=== PATIENT | female | born 1990 | race American Indian/Alaskan Native ===

== ENCOUNTER 2021-12-22 20:11 | Emergency (ER) | payer MEDICAID ==
[2021-12-22 20:19] VITALS: BP 134/76
[2021-12-22 21:16] LABS: Bacteria,Urine 1+ /HPF (Negative); Bilirubin,Urine NEG (Negative); Blood,Urine NEG (Negative); Color,Urine Yellow (Yellow); HCG Qualitative,Urine Negative (Negative); Mucus,Urine 1+ /HPF; Protein,Urine <15 mg/dL mg/dL (Negative)
[2021-12-22 21:20] LABS: Amphetamine Screen,Urine Negative; Benzodiazepines Screen,Urine Negative; Cannabinoid Screen,Urine Negative; Cocaine Screen,Urine Negative; Methadone Screen,Urine Negative; Opiate Screen,Urine Negative
== END 2021-12-23 11:32 | disposition left against medical advice (07) ==
LOC: ED 20:11
DX: Z91.14 Patient's other noncompliance with medication regimen (principal); Z53.21 Procedure and treatment not carried out due to patient leaving prior to being seen by health care provider
CPT/HCPCS: 80307; 81001; 81025

== ENCOUNTER 2021-12-28 21:49 | Emergency (ER) | payer MEDICAID ==
[2021-12-28] MEDS ORDERED: diphenhydrAMINE 50 MG/ML VIAL IM ONE (21:58)
[2021-12-28] MEDS ORDERED: ZIPRASIDONE MESYLATE 20 MG VIAL IM ONE (21:58)
[2021-12-28] MEDS ORDERED: LORazepam 2 MG/ML VIAL IM ONE (21:58)
--- NOTE | 2021-12-28 23:12 | Emergency Department Report ---
ED Psych HPI - General Chief Complaint: Psych Stated Complaint: MH Time Seen by Provider: 12/28/21 21:58 Source: police, EMS Mode of arrival: Ambulatory Limitations: Altered Mental Status - History of Present Illness Initial Comments: PT IS 31 YEARS OLD WITH HISTORY OF BIPOLAR BROUGHT IN LOCAL POLICE FOR AGITATION AND COMBATIVENESS, PT APPEARED DELUSIONAL RESPONDING TO INTERNAL STIMULATION WITH AGITATION . WAS BROUGTH IN HERE FOR EVALUATION AND POSSIBLE MANAGEMENT AND TRANSFER TO PSYCH FACILITY PT HAD TO BE SEDATED AFTER BEING TRANSPORTED HERE Associated Psychiatric Symptoms: racing thoughts, auditory hallucinations, delu sions History of same: Yes Quality: constant Improves With: therapy Worsens With: none Treatments Prior to Arrival: placed on mental he, physical restraints - Related Data Allergies Allergy/AdvReac Type Severity Reaction Status Date / Time quetiapine fumarate Allergy Unknown Verified 05/07/16 11:54 [From Seroquel] tramadol Allergy Unknown Verified 05/07/16 11:54 haloperidol [From Haldol] AdvReac Unknown Verified 05/07/16 11:54 haloperidol lactate AdvReac Unknown Verified 05/07/16 11:54 [From Haldol] ED Review of Systems ROS: Stated complaint: MH Other details as noted in HPI Comment: Unobtainable due to pts medical conditions Constitutional: denies: chills, fever Eyes: denies: eye pain, eye discharge, vision change ENT: denies: ear pain, throat pain Respiratory: denies: cough, shortness of breath, wheezing Cardiovascular: denies: chest pain, palpitations Endocrine: no symptoms reported Gastrointestinal: denies: abdominal pain, nausea, diarrhea Genitourinary: denies: urgency, dysuria, discharge Musculoskeletal: denies: back pain, joint swelling, arthralgia Skin: denies: rash, lesions Neurological: denies: headache, weakness, paresthesias Psychiatric: denies: anxiety, depression Hematological/Lymphatic: denies: easy bleeding, easy bruising ED Past Medical Hx - Past Medical History Hx Diabetes: Yes Hx Psychiatric Treatment: Yes (bipolar) - Social History Smoking Status: Unknown if ever smoked ED Physical Exam - General Limitations: No Limitations General appearance: alert, anxious, other (AGITATED ) - Head Head exam: Present: atraumatic, normocephalic - Eye Eye exam: Present: normal appearance - ENT ENT exam: Present: mucous membranes moist - Neck Neck exam: Present: normal inspection - Respiratory Respiratory exam: Present: normal lung sounds bilaterally. Absent: respiratory distress - Cardiovascular Cardiovascular Exam: Present: regular rate, normal rhythm. Absent: systolic murmur, diastolic murmur, rubs, gallop - GI/Abdominal GI/Abdominal exam: Present: soft, normal bowel sounds - Extremities Exam Extremities exam: Present: normal inspection - Back Exam Back exam: Present: normal inspection - Neurological Exam Neurological exam: Present: alert - Psychiatric Psychiatric exam: Present: normal affect, normal mood - Expanded Psychiatric Exam Expanded Focused psych exam: Present: psychomotor agitation, delusional - Skin Skin exam: Present: warm, dry, intact, normal color. Absent: rash ED Course Vital Signs 12/28/21 12/29/21 12/29/21 22:47 04:20 08:00 Temperature 97.7 F Pulse Rate 90 78 67 Respiratory 22 22 14 Rate Blood Pressure 153/78 148/88 141/84 [Left] O2 Sat by Pulse 100 100 98 Oximetry 12/29/21 20:05 Temperature 97.6 F Pulse Rate 66 Respiratory 16 Rate Blood Pressure 125/79 [Left] O2 Sat by Pulse 100 Oximetry ED Medical Decision Making - Lab Data Result diagrams: 12/28/21 23:06 12/28/21 23:06 Critical care attestation.: If time is entered above; I have spent that time in minutes in the direct care of this critically ill patient, excluding procedure time. ED Disposition Clinical Impression: Agitation, Psychosis Disposition: [address] [place] [address] Is pt being admited?: No Does the pt Need Aspirin: No Condition: Stable Additional Instructions: OUTPATIENT MENTAL HEALTH RESOURCES [facility], [facility] Miguelangel Salgado MD: [address], [address] [place] [address] [place], [place] [id number] [place] [facility]: [facility] [address] [place] [address] [place] [address] [phone] [facility]: [address] [facility] [address] [place] [address] [place] [address] [facility] [address] [facility]: Lenny Gutierrez MD: [address] [facility] [address] [facility] [address] [facility]: [address] [place] [phone] [place] CRISIS AND ACCESS LINE: Referrals: SANDRA MARADIAGA MD [Primary Care Provider] - 3-5 Days
[2021-12-28 23:26] LABS: Basophils % (Auto) 0.6 % (0.0-1.8); Eosinophils % (Auto) 0.5 % (0.0-4.3); Hematocrit 28.4 % (30.3-42.9); Hemoglobin 8.9 gm/dl (10.1-14.3); Lymphocytes # (Auto) 1.2 K/mm3 (1.2-5.4); Lymphocytes % (Auto) 17.4 % (13.4-35.0); Mean Corpuscular HGB Conc 31 % (30-34); Mean Corpuscular Volume 75 fl (79-97); Monocytes # (Auto) 0.4 K/mm3 (0.0-0.8); Monocytes % (Auto) 5.4 % (0.0-7.3); Platelet Count 436 K/mm3 (140-440); Red Blood Count 3.78 M/mm3 (3.65-5.03); Red Cell Distribution Width 19.2 % (13.2-15.2)
[2021-12-28 23:43] LABS: Blood Urea Nitrogen 11 mg/dL (7-17); Calcium 9.6 mg/dL (8.4-10.2); Hemolysis Index 0
[2021-12-29 00:02] LABS: BUN/Creatinine Ratio 16
[2021-12-29 04:55] LABS: Bacteria,Urine 1+ /HPF (Negative); Bilirubin,Urine NEG (Negative); Blood,Urine NEG (Negative); Color,Urine Yellow (Yellow); Mucus,Urine 3+ /HPF; RBC,Urine < 1.0 /HPF (0.0-6.0)
[2021-12-29 05:11] LABS: Amphetamine Screen,Urine PRESUMPTIVE NEGATIVE; Benzodiazepines Screen,Urine PRESUMPTIVE NEGATIVE; Cannabinoid Screen,Urine PRESUMPTIVE NEGATIVE; Cocaine Screen,Urine PRESUMPTIVE NEGATIVE; Methadone Screen,Urine PRESUMPTIVE NEGATIVE; Opiate Screen,Urine PRESUMPTIVE NEGATIVE
[2021-12-29] MEDS ORDERED: MIDAZOLAM 2 MG/2 ML INJ ONE (11:22)
[2021-12-29] MEDS ORDERED: diphenhydrAMINE 50 MG/ML VIAL ONE (11:22)
[2021-12-29] MEDS ORDERED: LORazepam 2 MG/ML VIAL ONE (11:22)
[2021-12-29] MEDS ORDERED: LORazepam 2 MG/ML VIAL IM ONE (11:30)
[2021-12-29] MEDS ORDERED: diphenhydrAMINE 50 MG/ML VIAL IM ONE (12:12)
--- NOTE | 2021-12-29 12:57 | Consultation ---
History of Present Illness - Reason for Consult Consult date: 12/29/21 Reason for consult: psychosis - History of Present Psychiatric Illness ED Note: PT IS 31 YEARS OLD WITH HISTORY OF BIPOLAR BROUGHT IN LOCAL POLICE FOR AGITATION AND COMBATIVENESS, PT APPEARED DELUSIONAL RESPONDING TO INTERNAL STIMULATION WITH AGITATION . WAS BROUGTH IN HERE FOR EVALUATION AND POSSIBLE MANAGEMENT AND TRANSFER TO PSYCH FACILITY PT HAD TO BE SEDATED AFTER BEING TRANSPORTED HERE. The patient was seen today. The patient was seen in the room resting and did not want to respond to questions. The nurse later called to report that the patient had eloped. The patient was later brought to the ED by the local police. The was seen at the back of the police care, she presents with flat affect,and agitated. She reports noncompliant with psychotropic meds stating " I'll have to go to court to take medicine." The patient is acutely psychotic. PAST PSYCHIATRIC HISTORY: PAST MEDICAL HISTORY: None reported or document Family Psychiatric History: None reported or documented SOCIAL HISTORY REVIEW OF SYSTEMS MENTAL STATUS EXAMINATION Diagnoses: (1)Bipolar (2) Treatment Plan 1013 Continue home meds. Goedon 40mg po BID Geodon 20mg IM every 6 hours for agitation PSYCHOTHERAPY: Supportive psychotherapy provided MEDICAL: Per primary team DELIRIUM PRECAUTIONS: Please re-orient patient frequently, keep lights on during the day, and minimize benzodiazepines and opiates as these medications could worsen patient's confusion. BEHAVIORAL SCIENCE CHAIR: Per medical team DISPOSITION: Recommend acute psychiatric inpatient treatment. Will follow. Thank you for the consult. Case staffed with Dr. Brunner Medications and Allergies Medications and Allergies Allergies Allergy/AdvReac Type Severity Reaction Status Date / Time quetiapine fumarate Allergy Unknown Verified 05/07/16 11:54 [From Seroquel] tramadol Allergy Unknown Verified 05/07/16 11:54 haloperidol [From Haldol] AdvReac Unknown Verified 05/07/16 11:54 haloperidol lactate AdvReac Unknown Verified 05/07/16 11:54 [From Haldol] Active Meds: Active Medications Midazolam HCl (Midazolam 5 Mg/5 Ml Inj Mdv) 5 mg IV ONCE TRACY Mental Status Exam - Vital signs Last Vital Signs Temp 97.7 F 12/28/21 22:47 Pulse 67 12/29/21 08:00 Resp 14 12/29/21 08:00 BP 141/84 12/29/21 08:00 Pulse Ox 98 12/29/21 08:00 Results Result Diagrams: 12/28/21 23:06 12/28/21 23:06 Abnormal lab results 12/28/21 12/28/21 12/28/21 Range/Units 23:06 23:06 23:06 Hgb 8.9 L (10.1-14.3) gm/dl Hct 28.4 L (30.3-42.9) % MCV 75 L (79-97) fl MCH 24 L (28-32) pg RDW 19.2 H (13.2-15.2) % Seg Neutrophils % 76.1 H (40.0-70.0) % Sodium 146 H (137-145) mmol/L Chloride 109.1 H (98-107) mmol/L Ur Specific [place] (1.003-1.030) U Epithel Cells (Auto) (0-13.0) /HPF Salicylates < 0.3 L (2.8-20.0) mg/dL Acetaminophen (10.0-30.0) ug/mL 12/28/21 12/29/21 Range/Units 23:06 04:33 Hgb (10.1-14.3) gm/dl Hct (30.3-42.9) % MCV (79-97) fl MCH (28-32) pg RDW (13.2-15.2) % Seg Neutrophils % (40.0-70.0) % Sodium (137-145) mmol/L Chloride (98-107) mmol/L Ur Specific [place] 1.032 H (1.003-1.030) U Epithel Cells (Auto) 17.0 H (0-13.0) /HPF Salicylates (2.8-20.0) mg/dL Acetaminophen 5.0 L (10.0-30.0) ug/mL All other labs normal.
[2021-12-29] MEDS ORDERED: MIDAZOLAM 5 MG/5 ML INJ MDV IV SCH (13:00)
[2021-12-29] MEDS: ZIPRASIDONE MESYLATE 20 MG VIAL IM PRN (15:21)
--- NOTE | 2021-12-29 20:03 | Event Note ---
Date: 12/29/21 S: psych progress FU note. Patient presented yesterday with combativeness and agitation. Patient with hx of bipolar disorder. Patient reportedly eloped but then brought back by police. O: Patient with animated affect; psych at bedside to evaluate Laboratory Results - last 72 hr 12/28/21 12/28/21 12/28/21 23:06 23:06 23:06 WBC 6.8 RBC 3.78 Hgb 8.9 L Hct 28.4 L MCV 75 L MCH 24 L MCHC 31 RDW 19.2 H Plt Count 436 Lymph % (Auto) 17.4 [place] % (Auto) 5.4 Eos % (Auto) 0.5 Baso % (Auto) 0.6 Lymph # (Auto) 1.2 [place] # (Auto) 0.4 Eos # (Auto) 0.0 Baso # (Auto) 0.0 Seg Neutrophils % 76.1 H Seg Neutrophils # 5.1 Sodium 146 H Potassium 3.6 Chloride 109.1 H Carbon Dioxide 22 Anion Gap 19 BUN 11 Creatinine 0.7 Estimated GFR > 60 BUN/Creatinine Ratio 16 Glucose 96 Calcium 9.6 Urine Color Urine Turbidity Urine pH Ur Specific [place] Urine Protein Urine Glucose (UA) Urine Ketones Urine Blood Urine Nitrite Urine Bilirubin Urine Urobilinogen Ur Leukocyte Esterase Urine WBC (Auto) Urine RBC (Auto) U Epithel Cells (Auto) Urine Bacteria (Auto) Urine Mucus Salicylates < 0.3 L Urine Opiates Screen Urine Methadone Screen Acetaminophen Ur Barbiturates Screen Ur Phencyclidine Scrn Ur Amphetamines Screen U Benzodiazepines Scrn Urine Cocaine Screen U Marijuana (THC) Screen Drugs of Abuse Note 12/28/21 12/29/21 12/29/21 23:06 04:33 04:33 WBC RBC Hgb Hct MCV MCH MCHC RDW Plt Count Lymph % (Auto) [place] % (Auto) Eos % (Auto) Baso % (Auto) Lymph # (Auto) [place] # (Auto) Eos # (Auto) Baso # (Auto) Seg Neutrophils % Seg Neutrophils # Sodium Potassium Chloride Carbon Dioxide Anion Gap BUN Creatinine Estimated GFR BUN/Creatinine Ratio Glucose Calcium Urine Color Yellow Urine Turbidity Clear Urine pH 5.0 Ur Specific [place] 1.032 H Urine Protein 30 mg/dl Urine Glucose (UA) Neg Urine Ketones 20 Urine Blood Neg Urine Nitrite Neg Urine Bilirubin Neg Urine Urobilinogen 4.0 Ur Leukocyte Esterase Neg Urine WBC (Auto) 1.0 Urine RBC (Auto) < 1.0 U Epithel Cells (Auto) 17.0 H Urine Bacteria (Auto) 1+ Urine Mucus 3+ Salicylates Urine Opiates Screen Presumptive negative Urine Methadone Screen Presumptive negative Acetaminophen 5.0 L Ur Barbiturates Screen Presumptive negative Ur Phencyclidine Scrn Presumptive negative Ur Amphetamines Screen Presumptive negative U Benzodiazepines Scrn Presumptive negative Urine Cocaine Screen Presumptive negative U Marijuana (THC) Screen Presumptive negative Drugs of Abuse Note Disclamer A: acute psychosis P: - symptomatic care for now - per psych, inpatient psych admission needed.
[2021-12-29] MEDS: ZIPRASIDONE 20 MG CAP PO SCH (22:05)
[2021-12-30] MEDS: ZIPRASIDONE MESYLATE 20 MG VIAL IM PRN (08:30)
--- NOTE | 2021-12-30 09:05 | Progress Note ---
Subjective - Reason for Consult Consult date: 12/30/21 Reason for consult: agitation - Chief Complaint Chief complaint: The patient was seen today. She is irritable and paranoid. The patient is speaking nonsensically and difficulty to follow. She is having flight of ideas. She is also making threats. The patient says "I'm tired of being locked up. I was in longterm and bonded out 5 times." She then says "the trial court judge ordered me to go to [facility]." The patient says "the police is harassing me and calculating my steps." "I kill. I don't steal." She is speaking of being Blaine Doran and Jesse Mason. She becomes upset when I ask about her taking medications. She says "people are doing weird and demonic shit. I'm not taking no God Damn meds." She says people gave her an injection last night, and she will murder for hire. The nurse comes out to calm the patient down. The patient becomes more upset. The patient says if she's given an injection again she will take the needle and stab it in someone's eye. She is talking loudly and is very agitated. She is pacing around the unit and talking through the glass about taking someone down. The nurse says the patient has Geodon prn on her regimen. I have her give it to the patient and also give a one time order for Benadryl. REVIEW OF SYSTEMS MENTAL STATUS EXAMINATION Assessment (1)Bipolar Treatment Plan 1013 Start Doxepin 10mg po qhs Goedon 40mg po BID Geodon 20mg IM every 6 hours for agitation and if refusal of PO antipsychotic PSYCHOTHERAPY: Supportive psychotherapy provided MEDICAL: Per primary team DELIRIUM PRECAUTIONS: Please re-orient patient frequently, keep lights on during the day, and minimize benzodiazepines and opiates as these medications could worsen patient's confusion. RESIDENTIAL CARE OFFICER: Per medical team DISPOSITION: Recommend acute psychiatric inpatient treatment. Will follow. Thank you for the consult. Case staffed with Dr. Brunner Mental Status Exam - Vital signs Last Vital Signs Temp 97.6 F 12/29/21 20:05 Pulse 66 12/29/21 20:05 Resp 16 12/29/21 20:05 BP 125/79 12/29/21 20:05 Pulse Ox 100 12/29/21 20:05
--- NOTE | 2021-12-30 09:57 | Electrocardiograph Report ---
[facility] Test Date: 2021-12-29 Test Time: 01:38:40 Pat Name: SUE GUADALUPE Department: Room: Gender: F Police Service Technician: JOEY DONG : 1990 Requested By: MICHAEL GANT Order Number: [id number] Reading MD: Per Garber Measurements Intervals [place] Rate: 63 P: 37 [place]: 174 QRS: 80 QRSD: 87 T: 44 QT: 402 QTc: 411 Interpretive Statements Sinus rhythm No previous ECG available for comparison Electronically Signed On 12-30-2021 9:57:32 EDT by Per Garber
[2021-12-30] MEDS: ZIPRASIDONE 20 MG CAP PO SCH ×2 (12:38→22:00)
--- NOTE | 2021-12-30 13:32 | Emergency Department Report ---
Blank Doc - Documentation Documentation: 31 yo female on 1013 refusing po meds, requiring IM meds test not obtained. (I ordered a serum hcg) vitals reviewed awaiting placement.
[2021-12-30] MEDS: DOXEPIN 10 MG CAP PO SCH (22:00)
--- NOTE | 2021-12-31 09:22 | Progress Note ---
Subjective - Reason for Consult Consult date: 12/31/21 Reason for consult: Bipolar Disorder - Chief Complaint Chief complaint: The patient was seen today. She is still irritable. She is cursing and refuses to talk. She tells us to get out of her room. REVIEW OF SYSTEMS MENTAL STATUS EXAMINATION Assessment (1)Bipolar Treatment Plan [address] 125mg po BID Doxepin 10mg po qhs Geodon 40mg po BID Geodon 20mg IM every 6 hours for agitation and if refusal of PO antipsychotic PSYCHOTHERAPY: Supportive psychotherapy provided MEDICAL: Per primary team DELIRIUM PRECAUTIONS: Please re-orient patient frequently, keep lights on during the day, and minimize benzodiazepines and opiates as these medications could worsen patient's confusion. BUCK SWAMPER: Per medical team DISPOSITION: Recommend acute psychiatric inpatient treatment. Will follow. Thank you for the consult. Case staffed with Dr. Brunner Mental Status Exam - Vital signs Last Vital Signs Temp 98.2 F 12/30/21 13:11 Pulse 72 12/30/21 13:11 Resp 20 12/30/21 13:11 BP 142/78 12/30/21 13:11 Pulse Ox 99 12/30/21 13:11
--- NOTE | 2021-12-31 11:38 | Emergency Department Report ---
Blank Doc - Documentation Documentation: 31-year-old female presents to the hospital with bipolar disorder and irritable behavior. Currently on 1013 awaiting placement. Chart and vital signs reviewed. Tolerating p.o. psychiatric meds as ordered by mental health
[2021-12-31] MEDS: ZIPRASIDONE 20 MG CAP PO SCH ×2 (13:10→22:00)
[2021-12-31] MEDS: DIVALPROEX DR 125 MG TAB PO SCH ×2 (13:12→22:00)
[2021-12-31] MEDS: DOXEPIN 10 MG CAP PO SCH (22:00)
[2022-01-01 10:00] VITALS: BP 146/85
[2022-01-01] MEDS: ZIPRASIDONE 20 MG CAP PO SCH ×2 (10:53→22:00)
[2022-01-01] MEDS: DIVALPROEX DR 125 MG TAB PO SCH ×2 (10:56→22:00)
--- NOTE | 2022-01-01 11:17 | Progress Note ---
Subjective - Reason for Consult Consult date: 01/01/22 Reason for consult: psychosis - Chief Complaint Chief complaint: The patient was seen today. She is irritable, and verbally aggressive. She is refusing meds. The nurse says the patient told her not to come back in her room or she would be DOA. She also says the patient is not making a lot of sense when she spoke to her this morning; she was rambling and ranting nonsensically. I spoke with the patient to try to encourage her to take her meds so she could improve. She refuses to take them. She says "the meds are messing with her diabetes and her health." She says "my therapist and psychiatrist told me it's my prerogative if I didn't want to take any meds." I instructed the nurse to give the patient IM Geodon and that the patient could not refuse oral antipsychotic. REVIEW OF SYSTEMS MENTAL STATUS EXAMINATION Assessment (1)Bipolar Treatment Plan [address] 125mg po BID Doxepin 10mg po qhs Geodon 40mg po BID Geodon 20mg IM every 6 hours for agitation and if refusal of PO antipsychotic PSYCHOTHERAPY: Supportive psychotherapy provided MEDICAL: Per primary team DELIRIUM PRECAUTIONS: Please re-orient patient frequently, keep lights on during the day, and minimize benzodiazepines and opiates as these medications could worsen patient's confusion. STEEL CUTTER: Per medical team DISPOSITION: Recommend acute psychiatric inpatient treatment. Will follow. Thank you for the consult. Case staffed with Dr. Brunner Mental Status Exam - Vital signs Last Vital Signs Temp 98.4 F 01/01/22 09:59 Pulse 88 01/01/22 09:59 Resp 18 01/01/22 09:59 BP 146/85 01/01/22 09:59 Pulse Ox 100 01/01/22 09:59
--- NOTE | 2022-01-01 11:26 | Event Note ---
Date: 01/01/22 Patient still with acute psychosis. Vital sign reviewed and is unremarkable. Labs are still pending. Patient has been seen by our psychiatric team and recommended inpatient psychiatric admission. I will ask the nurse to give Geodon 20 mg IM as needed.
[2022-01-01] MEDS: DOXEPIN 10 MG CAP PO SCH (22:00)
[2022-01-02] MEDS: DIVALPROEX DR 125 MG TAB PO SCH (10:57)
[2022-01-02] MEDS: ZIPRASIDONE 20 MG CAP PO SCH (10:58)
--- NOTE | 2022-01-02 12:16 | Event Note ---
Date: 01/02/22 Patient currently calm and cooperative. States she agrees to take her medication. She currently still remains on 1013. Today's mental health as sessment pending.
--- NOTE | 2022-01-02 13:02 | Progress Note ---
Subjective - Reason for Consult Consult date: 01/02/22 Reason for consult: psychosis - Chief Complaint Chief complaint: The patient was seen today. She has improved significantly. She is cooperative and a lot more calm today. She says "one day at at time" when asking her how she was feeling. She then says "I'm better though." The patient says she thinks the police messed up her arm. She says she's had a lot of things happen back to back including close deaths in her family. The patient says she's stressed and it turns into anger. She says "I have a hard time controlling my anger at times." She says she has a psychiatrist and a therapist she sees. The patient says she's been taking the medication but doesn't like the way the depakote. She denies SI/HI. She states "I'm just trying to stay sane." Will clear the patient, as I don't think she'll benefit much more from inpatient treatment. Nurse today says the patient has been calm, cooperative with no behavioral issues. REVIEW OF SYSTEMS Constitutional: Negative for weight loss ENT: Negative for stridor Respiratory: Negative for cough or hemoptysis All other systems reviewed and are negative MENTAL STATUS EXAMINATION General Appearance and Behavior: Age appropriate, good hygiene, wearing appropriate clothes, good eye contact, calm, cooperative and polite Cooperation: Cooperative Psychomotor Behavior: Psychomotor normal Mood: better Affect and affective range: congruent with stated mood Thought Process: Goal directed Thought Content: Reality oriented Speech: normal tone and pace Suicidal Ideation: Denies Homicidal Ideation: Denies Hallucinations: Denies Delusions: None elicited Impulse Control: Limited Insight and Judgment: Limited insight and judgment Memory: Limited Attention: attentive Orientation: Alert, oriented Assessment (1)Bipolar Treatment Plan d/c [address] 125mg po BID Doxepin 10mg po qhs Geodon 40mg po BID PSYCHOTHERAPY: Supportive psychotherapy provided MEDICAL: Per primary team DELIRIUM PRECAUTIONS: Please re-orient patient frequently, keep lights on during the day, and minimize benzodiazepines and opiates as these medications could worsen patient's confusion. INLAYER: Per medical team DISPOSITION: Do not recommend acute psychiatric inpatient treatment. The patient understands that if SI/HI are to arise she is to seek immediate assistance. The patient to follow up with outpatient psych in 7 to 14 days upon discharge Will sign off. Thank you for the consult. Case staffed with Dr. Brunner Mental Status Exam - Vital signs Last Vital Signs Temp 98.4 F 01/01/22 09:59 Pulse 88 01/01/22 09:59 Resp 18 01/01/22 09:59 BP 146/85 01/01/22 09:59 Pulse Ox 98 01/02/22 09:34
== END 2022-01-02 20:25 ==
LOC: ED 21:49
DX: R45.1 Restlessness and agitation (principal); F29 Unspecified psychosis not due to a substance or known physiological condition; E11.9 Type 2 diabetes mellitus without complications; F31.9 Bipolar disorder, unspecified; Z79.899 Other long term (current) drug therapy
CPT/HCPCS: 36415; 80048; 80307; 81001; 85025; 96372; 99284; J1200; J2060; J2250; J3486; 80320; G0480